=== PATIENT | male | born 1945 | race Caucasian/White ===

== ENCOUNTER 2019-06-23 21:59 | Inpatient (IN) ==
[2019-06-24] MEDS ORDERED: Naloxone 0.4 MG/ML INJ IVP PRN (02:34)
[2019-06-24 04:27] LABS: Immature Granulocytes % 0.3 % (0-4); Red Cell Distribution Width 18.3 % (11.5-14.5)
[2019-06-24 04:28] LABS: INR 1.3; Prothrombin Time 14.2 Seconds (9.4-12.1)
[2019-06-24 04:30] LABS: Activated Partial Thrombo Time 34.6 Seconds (26.0-36.0); Basophils % 0.6 %; Eosinophils # 0.1 K/mcL (0.0-0.6); Eosinophils % 1.8 %; Hematocrit 22.6 % (37.5-50.1); Hemoglobin 7.2 g/dL (12.9-16.9); Immature Platelets 1.4 % (1.1-6.1); Lymphocytes # 0.9 K/mcL (0.6-4.6); Lymphocytes % 14.1 %; Mean Corpuscular HGB Conc 31.9 g/dL (31.6-35.5); Mean Corpuscular Hemoglobin 29.6 pg (28.0-33.3); Mean Platelet Volume 9.2 fL (9.4-12.4); Monocytes # 0.3 K/mcL (0.0-1.3); Monocytes % 4.8 %; Neutrophils # 4.9 K/mcL (1.6-8.9); Red Blood Count 2.43 M/mcL (4.19-5.50); Segmented Neutrophils % 78.4 %; White Blood Count 6.2 K/mcL (4.3-11.1)
[2019-06-24 04:37] LABS: Platelet Count 79 K/mcL (140-400)
[2019-06-24 04:45] LABS: Albumin 3.6 g/dL (3.5-5.7); Albumin/Globulin Ratio 1.4 (1.1-2.2); Bilirubin,Direct 0.3 mg/dL (0.0-0.2); Bilirubin,Indirect 0.5 mg/dL (0.0-1.0); Bilirubin,Total 0.8 mg/dL (0.3-1.0); Calcium 8.9 mg/dL (8.6-10.3); Globulin 2.5 g/dL (2.4-3.5); Potassium 5.1 mEq/L (3.5-5.1); Total Protein 6.1 g/dL (6.4-8.9)
[2019-06-24] MEDS ORDERED: 0.9 % Sodium Chloride 1,000 ML IVC SCH (06:15)
[2019-06-24] MEDS: Pantoprazole 40 MG VIAL IVP SCH ×2 (06:16→17:42)
[2019-06-24 06:23] LABS: Anisocytosis 1+ (Not Present); Platelet Estimate Decreased (Normal)
[2019-06-24] MEDS: Nicotine 14 MG PATCH.TD24 TD SCH (09:01)
[2019-06-24] MEDS ORDERED: Ringers Solution, Lactated 1,000 ML IVC ONE (12:37)
[2019-06-24] MEDS: Leptospermum Honey Gel 44 ML TUBE TP SCH (17:42)
[2019-06-25] MEDS ORDERED: Milk and Molasses Enema 200 ML RC ONE (06:00)
[2019-06-25] MEDS: Pantoprazole 40 MG VIAL IVP SCH (06:02)
[2019-06-25 08:29] LABS: Hematocrit 22.4 % (37.5-50.1); Mean Corpuscular HGB Conc 31.3 g/dL (31.6-35.5); Mean Corpuscular Hemoglobin 29.8 pg (28.0-33.3); Mean Corpuscular Volume 95.3 fL (83.0-100.0); Mean Platelet Volume 9.3 fL (9.4-12.4); Red Blood Count 2.35 M/mcL (4.19-5.50); Red Cell Distribution Width 18.4 % (11.5-14.5); White Blood Count 5.9 K/mcL (4.3-11.1)
[2019-06-25 08:31] LABS: Platelet Count 50 K/mcL (140-400)
[2019-06-25 08:46] LABS: Calcium 9.1 mg/dL (8.6-10.3); Magnesium 2.3 mg/dL (1.6-2.6); Potassium 4.5 mEq/L (3.5-5.1)
[2019-06-25 09:18] LABS: Basophils % 0.5 %; Eosinophils # 0.2 K/mcL (0.0-0.6); Eosinophils % 2.8 %; Immature Granulocytes % 0.5 % (0-4); Lymphocytes # 0.9 K/mcL (0.6-4.6); Lymphocytes % 15.2 %; Monocytes # 0.5 K/mcL (0.0-1.3); Monocytes % 7.4 %; Neutrophils # 4.5 K/mcL (1.6-8.9); Segmented Neutrophils % 73.6 %
[2019-06-25] MEDS ORDERED: *HR* Midazolam HCl 5 MG/5 ML VIAL IVP ONE ×2 (09:29→10:16)
[2019-06-25] MEDS ORDERED: *HR* FentaNYL (PF) 100 MCG/2 ML VIAL ONE (09:29)
[2019-06-25] MEDS ORDERED: *HR* FentaNYL (PF) 100 MCG/2 ML VIAL IVP ONE (10:16)
[2019-06-25] MEDS: Sucralfate 1 GM TABLET PO SCH ×3 (15:54→21:06)
[2019-06-25] MEDS: Pantoprazole 40 MG in 0.9 % Sodium Chloride Mini Bag 100 ML IVC SCH ×2 (15:54→20:18)
[2019-06-25] MEDS: Nicotine 14 MG PATCH.TD24 TD SCH (15:55)
[2019-06-25] MEDS: Leptospermum Honey Gel 44 ML TUBE TP SCH (15:55)
[2019-06-26] MEDS: Pantoprazole 40 MG in 0.9 % Sodium Chloride Mini Bag 100 ML IVC SCH (01:13)
[2019-06-26] MEDS: Pantoprazole 40 MG VIAL IVP SCH ×2 (06:35→17:31)
[2019-06-26 08:34] LABS: Mean Corpuscular Volume 93.8 fL (83.0-100.0)
[2019-06-26 08:36] LABS: Basophils % 0.6 %; Eosinophils # 0.1 K/mcL (0.0-0.6); Eosinophils % 2.2 %; Hematocrit 21.2 % (37.5-50.1); Hemoglobin 6.6 g/dL (12.9-16.9); Immature Granulocytes % 0.6 % (0-4); Immature Platelets 2.5 % (1.1-6.1); Lymphocytes % 18.6 %; Mean Corpuscular HGB Conc 31.1 g/dL (31.6-35.5); Mean Corpuscular Hemoglobin 29.2 pg (28.0-33.3); Mean Platelet Volume 9.4 fL (9.4-12.4); Monocytes # 0.6 K/mcL (0.0-1.3); Monocytes % 11.3 %; Neutrophils # 3.4 K/mcL (1.6-8.9); Red Blood Count 2.26 M/mcL (4.19-5.50); Red Cell Distribution Width 18.2 % (11.5-14.5); Segmented Neutrophils % 66.7 %; White Blood Count 5.1 K/mcL (4.3-11.1)
[2019-06-26] MEDS: Sucralfate 1 GM TABLET PO SCH ×3 (08:38→17:31)
[2019-06-26] MEDS: Nicotine 14 MG PATCH.TD24 TD SCH (08:39)
[2019-06-26 08:41] LABS: Platelet Count 44 K/mcL (140-400)
[2019-06-26 08:55] LABS: Calcium 8.5 mg/dL (8.6-10.3); Potassium 4.7 mEq/L (3.5-5.1)
[2019-06-26] MEDS: Leptospermum Honey Gel 44 ML TUBE TP SCH (11:55)
[2019-06-26] MEDS ORDERED: 0.9 % Sodium Chloride 250 ML ONE ×2 (13:39→17:16)
[2019-06-27] MEDS: Pantoprazole 40 MG VIAL IVP SCH ×2 (05:15→17:26)
[2019-06-27] MEDS: Sucralfate 1 GM TABLET PO SCH ×5 (05:15→20:41)
[2019-06-27 05:32] LABS: Mean Corpuscular Hemoglobin 29.5 pg (28.0-33.3)
[2019-06-27 05:34] LABS: Hematocrit 23.8 % (37.5-50.1); Hemoglobin 7.7 g/dL (12.9-16.9); Immature Platelets 3.6 % (1.1-6.1); Mean Corpuscular HGB Conc 32.4 g/dL (31.6-35.5); Mean Corpuscular Volume 91.2 fL (83.0-100.0); Mean Platelet Volume 10.3 fL (9.4-12.4); Red Blood Count 2.61 M/mcL (4.19-5.50); Red Cell Distribution Width 17.9 % (11.5-14.5); White Blood Count 5.9 K/mcL (4.3-11.1)
[2019-06-27 05:56] LABS: Calcium 8.8 mg/dL (8.6-10.3)
[2019-06-27] MEDS: Nicotine 14 MG PATCH.TD24 TD SCH (07:52)
[2019-06-27] MEDS: Leptospermum Honey Gel 44 ML TUBE TP SCH (09:25)
[2019-06-27 16:26] LABS: Mean Corpuscular HGB Conc 31.6 g/dL (31.6-35.5); Red Cell Distribution Width 17.7 % (11.5-14.5)
[2019-06-27 16:28] LABS: Basophils % 0.5 %; Eosinophils # 0.1 K/mcL (0.0-0.6); Eosinophils % 1.2 %; Hemoglobin 7.9 g/dL (12.9-16.9); Immature Granulocytes % 0.5 % (0-4); Immature Platelets 4.1 % (1.1-6.1); Lymphocytes % 15.5 %; Mean Corpuscular Volume 91.9 fL (83.0-100.0); Mean Platelet Volume 10.3 fL (9.4-12.4); Monocytes # 0.9 K/mcL (0.0-1.3); Monocytes % 14.1 %; Neutrophils # 4.2 K/mcL (1.6-8.9); Red Blood Count 2.72 M/mcL (4.19-5.50); Segmented Neutrophils % 68.2 %; White Blood Count 6.1 K/mcL (4.3-11.1)
[2019-06-27 16:29] LABS: Platelet Count 45 K/mcL (140-400)
[2019-06-27 16:30] LABS: Platelet Estimate Decreased (Normal)
[2019-06-28] MEDS: Leptospermum Honey Gel 44 ML TUBE TP SCH (03:00)
[2019-06-28 04:54] LABS: Red Cell Distribution Width 17.3 % (11.5-14.5)
[2019-06-28] MEDS: Pantoprazole 40 MG VIAL IVP SCH ×2 (04:55→17:58)
[2019-06-28 04:56] LABS: Hematocrit 23.5 % (37.5-50.1); Hemoglobin 7.4 g/dL (12.9-16.9); Immature Platelets 4.1 % (1.1-6.1); Mean Corpuscular HGB Conc 31.5 g/dL (31.6-35.5); Mean Corpuscular Volume 92.2 fL (83.0-100.0); Mean Platelet Volume 10.7 fL (9.4-12.4); Red Blood Count 2.55 M/mcL (4.19-5.50); White Blood Count 5.8 K/mcL (4.3-11.1)
[2019-06-28 05:14] LABS: Calcium 8.6 mg/dL (8.6-10.3); Potassium 4.5 mEq/L (3.5-5.1)
[2019-06-28] MEDS: Nicotine 14 MG PATCH.TD24 TD SCH (07:32)
[2019-06-28] MEDS: Sucralfate 1 GM TABLET PO SCH ×4 (07:32→20:18)
[2019-06-29] MEDS: Pantoprazole 40 MG VIAL IVP SCH ×2 (05:21→16:58)
[2019-06-29 05:24] LABS: Hematocrit 22.9 % (37.5-50.1); Hemoglobin 7.4 g/dL (12.9-16.9); Immature Platelets 5.5 % (1.1-6.1); Mean Corpuscular HGB Conc 32.3 g/dL (31.6-35.5); Mean Corpuscular Hemoglobin 29.6 pg (28.0-33.3); Mean Corpuscular Volume 91.6 fL (83.0-100.0); Mean Platelet Volume 10.7 fL (9.4-12.4); Red Blood Count 2.5 M/mcL (4.19-5.50); Red Cell Distribution Width 17.1 % (11.5-14.5); White Blood Count 7.9 K/mcL (4.3-11.1)
[2019-06-29 05:41] LABS: Calcium 8.8 mg/dL (8.6-10.3); Potassium 4.7 mEq/L (3.5-5.1)
[2019-06-29] MEDS: Sucralfate 1 GM TABLET PO SCH ×4 (10:45→20:38)
[2019-06-29] MEDS: Nicotine 14 MG PATCH.TD24 TD SCH (10:53)
[2019-06-29] MEDS: Leptospermum Honey Gel 44 ML TUBE TP SCH (10:54)
[2019-06-29] MEDS ORDERED: 0.9 % Sodium Chloride 250 ML ONE (15:39)
[2019-06-30 05:18] LABS: Hematocrit 24.8 % (37.5-50.1); Mean Corpuscular Volume 92.5 fL (83.0-100.0); Red Blood Count 2.68 M/mcL (4.19-5.50); White Blood Count 9.2 K/mcL (4.3-11.1)
[2019-06-30 05:19] LABS: Immature Platelets 4.9 % (1.1-6.1); Mean Corpuscular HGB Conc 32.3 g/dL (31.6-35.5); Mean Corpuscular Hemoglobin 29.9 pg (28.0-33.3); Mean Platelet Volume 10.4 fL (9.4-12.4); Red Cell Distribution Width 16.8 % (11.5-14.5)
[2019-06-30] MEDS: Pantoprazole 40 MG VIAL IVP SCH (05:28)
[2019-06-30 05:31] LABS: Calcium 8.9 mg/dL (8.6-10.3); Magnesium 1.7 mg/dL (1.6-2.6); Potassium 4.8 mEq/L (3.5-5.1)
[2019-06-30] MEDS: Leptospermum Honey Gel 44 ML TUBE TP SCH (09:51)
[2019-06-30] MEDS: Nicotine 14 MG PATCH.TD24 TD SCH (09:51)
[2019-06-30] MEDS: Sucralfate 1 GM TABLET PO SCH (11:36)
[2019-06-30 12:13] LABS: Hematocrit 25.5 % (37.5-50.1); Hemoglobin 8.3 g/dL (12.9-16.9)
[2019-06-30 12:35] VITALS: BP 148/60
== END 2019-06-30 14:58 | DRG 378 ==
LOC: 3ANU → SUATTDRO 06-27 17:39
PROVIDERS: ADMIT Internal Medicine; ATTEND Internal Medicine
PROC: ENDOCBX (2019-06-25 08:00)
PROC: ENDOEBX (2019-06-25 08:00)